=== PATIENT | female | born 1975 | race Caucasian/White ===

== ENCOUNTER 2024-07-31 12:17 | Outpatient (CLI) | payer BC ==
[2024-07-31 13:16] LABS: #Basophils 0.03 10x3/uL (0.0-0.2); %Basophils 0.5 % (0.0-1.0); %Eosinophils 1.7 % (0.0-10.0); %Lymphocytes 31.5 % (21.0-51.0); %Monocytes 9.2 % (0.0-10.0); %Neutrophils 56.9 % (42.0-75.0); Hematocrit 38.2 % (36.0-47.0); Hemoglobin 12.1 g/dL (12.0-16.0); Mean Corpuscular HGB CONC 31.7 g/dL (32.0-36.0); Mean Corpuscular Hemoglobin 29.5 pg (27.0-31.0); Mean Corpuscular Volume 93.2 fL (78.0-98.0); Mean Platelet Volume 10.6 fL (7.4-10.4); Platelet Count 217 10x3/uL (130-400); RBC Distribution Width 11.4 % (11.5-14.5)
[2024-07-31 13:37] LABS: Anion Gap 11 mmol/L (10-20); BUN (Urea Nitrogen) 15 mg/dL (7.0-18.7); Calc. Creatinine Clearance 0 mL/min (70-130); Calcium 9.7 mg/dL (7.8-10.44); Carbon Dioxide 27 mmol/L (22-29); Chloride 106 mmol/L (98-107); Estimated GFR 95; Glucose 89 mg/dL (70-105); Potassium 4.1 mmol/L (3.5-5.1); Sodium 140 mmol/L (136-145)
== END 2024-07-31 12:18 | disposition home or self-care (01) ==
LOC: LABBT 12:17
PROVIDERS: ATTEND Orthopaedic Surgery
DX: Z01.818 Encounter for other preprocedural examination (principal); Z98.890 Other specified postprocedural states
CPT/HCPCS: 80048; 85025; 93005; 93010

== ENCOUNTER 2024-08-02 09:19 | Day surgery (SDC) | payer BC ==
[2024-07-31 12:35] VITALS: BMI 24.2
[2024-08-02] MEDS ORDERED: CEFAZOLIN 2 GM VIAL ONE (13:02)
[2024-08-02] MEDS ORDERED: PROPOFOL 20 ML ONE ×2 (13:41→13:42)
[2024-08-02] MEDS ORDERED: Lidocaine 1% PF 5 ML VIAL ONE (13:42)
[2024-08-02] MEDS ORDERED: Dexamethasone 20 MG/5 ML VIAL ONE (13:42)
[2024-08-02] MEDS ORDERED: Rocuronium Bromide 10 MG/ML (10ML VIAL) ONE (13:42)
[2024-08-02] MEDS ORDERED: Midazolam HCl 2 mg/2 ml Vial ONE (13:42)
[2024-08-02] MEDS ORDERED: Ondansetron PF 4 MG/2 ML Vial ONE (13:42)
[2024-08-02] MEDS ORDERED: fentaNYL 50 mcg/mL 1 mL Vial ONE ×2 (13:42→14:10)
[2024-08-02] MEDS ORDERED: PHENYLEPHRINE-NS 100 MCG/ML 10 ML SYRINGE ONE (13:51)
[2024-08-02] MEDS ORDERED: Bupivacaine PF 0.5% 30 ML VIAL ONE (13:58)
[2024-08-02] MEDS ORDERED: EPINEPHrine 1 MG/ML VIAL ONE (13:58)
[2024-08-02] MEDS ORDERED: HYDROcodone/Acetaminophen 5/325 mg Tablet ONE (15:37)
== END 2024-08-02 16:39 | disposition home or self-care (01) ==
LOC: SDC 09:19
PROVIDERS: ATTEND Orthopaedic Surgery
PROC: 0SPG04Z Removal of Internal Fixation Device from Left Ankle Joint, Open Approach (ICD-10-PCS; principal; 2024-08-02)
DX: T84.84XA Pain due to internal orthopedic prosthetic devices, implants and grafts, initial encounter (principal); E03.9 Hypothyroidism, unspecified; G43.109 Migraine with aura, not intractable, without status migrainosus; Z79.899 Other long term (current) drug therapy; Z88.8 Allergy status to other drugs, medicaments and biological substances; Z98.890 Other specified postprocedural states; Z87.81 Personal history of (healed) traumatic fracture; Y83.1 Surgical operation with implant of artificial internal device as the cause of abnormal reaction of the patient, or of later complication, without mention of misadventure at the time of the procedure
CPT/HCPCS: A6223; J0171; J0665; J1100; J2250; J2405; J2704; J3010